=== PATIENT | female | born 1990 | race African-American/Black ===

== ENCOUNTER 2017-04-29 07:25 | Emergency (ER) | payer OTHER ==
[~2017-04-29] VITALS: Ht 165.1 cm; Wt 54.4 kg
[~2017-04-29 07:25] MED LIST: ACETAMINOPHEN-1 EAC1 PO; ACTICIN 5% CREA60 G1 TOP; DARVOCET-N 1001 EACH PO; ERYTHROMYCIN E3.5 G1 OP; KEFLEX500 MG PO; NAPROSYN500 MG PO; NOHOMEMEDICATIONS; PROVENTIL HFA6.7 G1 INH; PROVENTIL IH
[2017-04-29 09:04] VITALS: BP 127/80
== END 2017-04-29 09:06 | disposition home or self-care (01) ==
LOC: ER 07:25
DX: S90.31XA Contusion of right foot, initial encounter (principal); F41.9 Anxiety disorder, unspecified; F17.210 Nicotine dependence, cigarettes, uncomplicated; Z88.5 Allergy status to narcotic agent; F10.99 Alcohol use, unspecified with unspecified alcohol-induced disorder; Z88.8 Allergy status to other drugs, medicaments and biological substances; Y04.2XXA Assault by strike against or bumped into by another person, initial encounter; Y93.89 Activity, other specified; Y92.89 Other specified places as the place of occurrence of the external cause; Y99.8 Other external cause status